=== PATIENT | male | born 1945 | race Caucasian/White ===

== ENCOUNTER 2017-08-02 06:29 | Inpatient (IN) | payer OTHER ==
[2017-08-02] MEDS ORDERED: TRANEXAMIC ACID 1,000 MG in D5W 100 ML AT CLOSURE X1 IVPB (07:00)
[2017-08-02] MEDS ORDERED: CEFAZOLIN 2 GM/50 ML (PMX) 50 ML (FOR WT < 120 KG) IVPB (07:00)
[2017-08-02] MEDS ORDERED: GLYCOPYRROLATE 0.4 MG INJ (08:49)
[2017-08-02] MEDS ORDERED: CEFAZOLIN 1 GM INJ (08:49)
[2017-08-02] MEDS ORDERED: DEXAMETHASONE 4 MG/ML 1 ML INJ (08:49)
[2017-08-02] MEDS ORDERED: PROPOFOL 20 ML (08:49)
[2017-08-02] MEDS ORDERED: FENTAnyl 50 MCG/ML VIAL ×2 (08:49→11:58)
[2017-08-02] MEDS ORDERED: ONDANSETRON 4 MG INJ (08:49)
[2017-08-02] MEDS ORDERED: MIDAZOLAM 1 MG/ML 2 ML INJ (08:49)
[2017-08-02] MEDS ORDERED: NEOSTIGMINE 3 MG/3 ML SYRINGE (08:49)
[2017-08-02] MEDS ORDERED: ROPIVACAINE 0.5 % 30 ML VIAL (08:49)
[2017-08-02] MEDS ORDERED: ROCURONIUM 50 MG INJ (08:49)
[2017-08-02] MEDS: TRANEXAMIC ACID 1,000 MG in D5W 100 ML AT INCISION X1 IVPB ×3 (09:50→11:48)
[2017-08-02] MEDS ORDERED: LABETALOL HCL 20MG INJ (09:50)
[2017-08-02] MEDS: BACITRACIN 50000 UNITS INJ (10:32)
[2017-08-02] MEDS: POLYMYXIN B 500000 UNIT INJ (10:32)
[2017-08-02] MEDS: POLYMYXIN/BACITRACIN 1L IRRIG (10:32)
[2017-08-02] MEDS ORDERED: HYDROmorphONE (0.2 MG/ML) 10ML SYG IV ×2 (11:00)
[2017-08-02] MEDS ORDERED: ONDANSETRON 4 MG INJ IV ×2 (11:00→12:00)
[2017-08-02] MEDS ORDERED: EPHEDrine SULFATE 50 MG/5 ML SYG IV (11:00)
[2017-08-02] MEDS ORDERED: DIPHENHYDRAMINE 50 MG INJ IV ×2 (11:00→12:00)
[2017-08-02] MEDS ORDERED: hydrALAzine 20 MG INJ IV (11:00)
[2017-08-02] MEDS ORDERED: FENTAnyl 50 MCG/ML VIAL IV ×2 (11:00)
[2017-08-02] MEDS ORDERED: MIDAZOLAM 1 MG/ML 2 ML INJ IV (11:00)
[2017-08-02] MEDS ORDERED: OXYCODONE/ACETAMINOPHEN (5/325) TAB PO ×4 (11:00→12:00)
[2017-08-02] MEDS ORDERED: MEPERIDINE 25 MG INJ IV (11:00)
[2017-08-02] MEDS ORDERED: LABETALOL HCL 20MG INJ IV (11:00)
[2017-08-02] MEDS ORDERED: TRIMETHOBENZAMIDE 100 MG/ML VIAL IM ×2 (11:00→12:00)
[2017-08-02] MEDS ORDERED: SUGAMMADEX SODIUM 200 MG/2 ML VIAL IV (11:50)
[2017-08-02] MEDS ORDERED: ZOLPIDEM 5 MG TAB PO (12:00)
[2017-08-02] MEDS ORDERED: HYDROCODONE/APAP (5/325) TAB PO ×3 (12:00→16:30)
[2017-08-02] MEDS ORDERED: BISACODYL 10 MG SUPP PR (12:00)
[2017-08-02] MEDS ORDERED: NA PHOSPHATE/BIPHOS 133 ML ENEMA PR (12:00)
[2017-08-02] MEDS ORDERED: BETHANECHOL 25 MG TAB PO (12:00)
[2017-08-02] MEDS ORDERED: MAGNESIUM HYDROXIDE 30ML CUP PO ×2 (12:00→16:30)
[2017-08-02] MEDS ORDERED: NACL 0.9% 3 ML SYG IV (12:00)
[2017-08-02] MEDS: IPRATROPIUM (NEB) 0.5 MG/2.5 ML AMP HHN (12:45)
[2017-08-02] MEDS: ALBUTEROL 0.083% (NEB) 2.5 MG/3 ML AMP HHN (12:45)
[2017-08-02] MEDS: FENTAnyl 50 MCG/ML VIAL IV (12:51)
[2017-08-02] MEDS: HYDROmorphONE (0.2 MG/ML) 10ML SYG IV (12:52)
[2017-08-02] MEDS: ASPIRIN (EC) 325 MG TAB PO (12:54)
[2017-08-02] MEDS ORDERED: morphine 2 MG INJ IV (16:30)
[2017-08-02] MEDS ORDERED: morphine LIQ (10 MG/5 ML) CUP PO (16:30)
[2017-08-02] MEDS ORDERED: DOCUSATE SODIUM 100 MG CAP PO (16:30)
[2017-08-02] MEDS ORDERED: BISACODYL (EC) 5 MG TAB PO (16:30)
[2017-08-02] MEDS: CEFAZOLIN 1 GM/50 ML (PMX) 50 ML IVPB ×2 (16:33→23:34)
[2017-08-02] MEDS: LACTATED RINGER'S 1,000 ML IV (16:34)
[2017-08-02] MEDS: PANTOPRAZOLE (EC) 40 MG TAB PO ×2 (18:57→23:34)
[2017-08-02] MEDS ORDERED: GABAPENTIN 300 MG CAP PO (21:00)
[2017-08-02] MEDS: GABAPENTIN 100 MG CAP PO (22:21)
[2017-08-02] MEDS: SENNA/DOCUSATE NA (8.6MG/50MG) TAB PO (22:22)
[2017-08-02] MEDS: METOPROLOL (XL) 25 MG TAB PO (22:22)
[2017-08-02] MEDS ORDERED: ALBUTEROL HFA 8 GM INHALER INH (23:30)
[2017-08-03] MEDS: CEPASTAT LOZENGE MT (01:04)
[2017-08-03] MEDS: HYDROCODONE/APAP (5/325) TAB PO ×3 (01:07→07:50)
[2017-08-03 05:13] LABS: ADD MAN DIFF? NO
[2017-08-03 05:16] LABS: BASOPHILS % 0.1 % (0.0-2.0); HEMATOCRIT 37.1 % (42.0-52.0); HEMOGLOBIN 12.3 g/dl (14.0-18.0); LYMPHOCYTES # 1.4 10^3/ul (0.8-2.9); LYMPHOCYTES % 14.5 % (15.0-51.0); MEAN CORPUSCULAR HEMOGLOBIN 27.1 pg (29.0-33.0); MEAN CORPUSCULAR HGB CONC 33.2 g/dl (32.0-37.0); MEAN CORPUSCULAR VOLUME 81.7 fl (82.0-101.0); MEAN PLATELET VOLUME 9.2 fl (7.4-10.4); MONOCYTE # 0.9 10^3/ul (0.3-0.9); MONOCYTES % 8.6 % (0.0-11.0); NEUTROPHIL # 7.5 10^3/ul (1.6-7.5); PLATELET COUNT 153 10^3/UL (140-415); RED BLOOD COUNT 4.54 10^6/ul (4.70-6.10); RED CELL DISTRIBUTION WIDTH 14.6 % (11.5-14.5)
[2017-08-03 05:16] LABS: WHITE BLOOD COUNT 9.9 10^3/ul (4.8-10.8)
[2017-08-03 05:28] LABS: HEMOGLOBIN A1C 5.5 % (0-5.9)
[2017-08-03 05:52] LABS: ALANINE AMINOTRANSFERASE 41 IU/L (13-69); ALBUMIN 3.3 g/dl (3.3-4.9); ALKALINE PHOSPHATASE 55 IU/L (42-121); ANION GAP 14 (8-16); ASPARTATE AMINO TRANSFERASE 24 IU/L (15-46); BLOOD UREA NITROGEN 19 mg/dl (7-20); CALCIUM 8.4 mg/dl (8.4-10.2); CARBON DIOXIDE 29 mmol/L (21-31); CHLORIDE 104 mmol/L (97-110); CHOL/HDL RATIO 1.9 RATIO; CHOLESTEROL 85 mg/dl (100-200); CREATININE 0.95 mg/dl (0.61-1.24); GLUCOSE 120 mg/dl (70-220); HDL CHOLESTEROL 43 mg/dl (31-75); LDL CHOLESTEROL,CALCULATED 5 mg/dl; PHOSPHORUS 3.6 mg/dl (2.5-4.9); SODIUM 143 mmol/L (135-144); TOTAL PROTEIN 5.5 g/dl (6.1-8.1); TRIGLYCERIDES 184 mg/dl (0-149)
[2017-08-03 05:54] LABS: FREE THYROXINE INDEX (Calc) 2.45 ug/ml (0.65-3.89); T3 UPTAKE 36.5 % (23.5-40.5); T4 (THYROXINE) 6.7 ug/dl (5.5-11.0)
[2017-08-03 06:08] LABS: THYROID STIMULATING HORMONE 0.513 MIU/L (0.465-4.680)
[2017-08-03] MEDS: PANTOPRAZOLE (EC) 40 MG TAB PO (06:10)
[2017-08-03] MEDS: CEFAZOLIN 1 GM/50 ML (PMX) 50 ML IVPB (06:10)
[2017-08-03] MEDS: GABAPENTIN 100 MG CAP PO ×2 (09:36→12:34)
[2017-08-03] MEDS: ASPIRIN (EC) 325 MG TAB PO (09:36)
[2017-08-03] MEDS: LOSARTAN 50 MG TAB PO (09:36)
[2017-08-03] MEDS: SENNA/DOCUSATE NA (8.6MG/50MG) TAB PO (09:36)
[2017-08-03] MEDS: TIOTROPIUM 18 MCG CAPSULE INHA DEV INH (09:36)
[2017-08-03] MEDS: HYDROCHLOROTHIAZIDE 12.5 MG CAP PO (09:37)
[2017-08-03] MEDS: KETOROLAC 15 MG INJ IV (09:43)
[2017-08-04] MEDS ORDERED: MAGNESIUM HYDROXIDE 30ML CUP PO (21:00)
== END 2017-08-03 13:44 | disposition home health service (06) | DRG 483 ==
LOC: REC 06:29 → MS1 15:20
PROC: 0RRJ00Z Replacement of Right Shoulder Joint with Reverse Ball and Socket Synthetic Substitute, Open Approach (ICD-10-PCS; principal; 2017-08-02 08:30)
PROC: 0RPJ04Z Removal of Internal Fixation Device from Right Shoulder Joint, Open Approach (ICD-10-PCS; 2017-08-02 08:30)
DX: M19.011 Primary osteoarthritis, right shoulder (principal); I10 Essential (primary) hypertension; J44.9 Chronic obstructive pulmonary disease, unspecified; I25.2 Old myocardial infarction; M75.101 Unspecified rotator cuff tear or rupture of right shoulder, not specified as traumatic; I25.10 Atherosclerotic heart disease of native coronary artery without angina pectoris; Z47.2 Encounter for removal of internal fixation device; Z85.51 Personal history of malignant neoplasm of bladder; Z87.891 Personal history of nicotine dependence; Z79.82 Long term (current) use of aspirin
CPT/HCPCS: 80053; 80061; 83036; 84100; 84436; 84443; 84479; 85025; 86850; 86900; 86901; 87081; 88300; 88304; 88311; 94664; 97166

== ENCOUNTER 2017-08-03 14:40 | Emergency (ER) | payer OTHER ==
[2017-08-03] MEDS: KETOROLAC 30 MG INJ IM (16:12)
== END 2017-08-03 16:45 | disposition home or self-care (01) ==
LOC: FTE 14:40
DX: M25.511 Pain in right shoulder (principal); J44.9 Chronic obstructive pulmonary disease, unspecified; I10 Essential (primary) hypertension; I25.2 Old myocardial infarction; Z85.51 Personal history of malignant neoplasm of bladder; Z87.891 Personal history of nicotine dependence
CPT/HCPCS: 73030; 73030-RT; 96372; 99284-25